=== PATIENT | female | born 1930 | race Caucasian/White ===

== ENCOUNTER 2018-08-27 05:30 | Emergency (ER) | payer MEDICARE, BC, MEDICAID ==
[~2018-08-27] VITALS: Ht 165.1 cm; Wt 68.2 kg
[~2018-08-27 05:30] MED LIST: ASPI81TA52 PO; INSU100V12 SQ; INSU100V5 IJ; LEVO75TA PO; OXYB5TAB11 PO; PRAV80TA3 PO; QUIN10TA PO
[2018-08-27 06:08] LABS: CLARITY,URINE CLEAR (Clear); COLOR,URINE STRAW (Yellow); GLUCOSE, URINE NEGATIVE (Neg); KETONES,URINE NEGATIVE (Neg); LEUKOCYTE ESTERASE ,URINE NEGATIVE (Neg); NITRITES, URINE NEGATIVE (Neg); OCCULT BLOOD,URINE NEGATIVE (Neg); PH,URINE 5.5 (4.8-8.0); PROTEIN,URINE NEGATIVE (Neg); UROBILINOGEN,URINE 0.2 E.U/dL (0.2-1.0)
[2018-08-27 06:09] LABS: UA COLLECTION TYPE CLN CATCH MIDSTREAM
[2018-08-27 06:14] LABS: BASOPHILS % (AUTO) 0.4 % (0-1); EOSINOPHILS # (AUTO) 0.4 X10'3 (0-0.9); EOSINOPHILS % (AUTO) 4.7 % (0-6); HEMATOCRIT 35.4 % (35.0-45.0); HEMOGLOBIN 11.7 g/dl (12.0-16.0); LYMPHOCYTES # (AUTO) 1.9 X10'3 (1.1-4.8); LYMPHOCYTES % (AUTO) 25.5 % (21-51); MEAN CORPUSCULAR HEMOGLOBIN 33.7 PG (27.0-31.0); MEAN CORPUSCULAR VOLUME 101.9 FL (78-98); MEAN PLATELET VOLUME 7.1 FL (7.4-10.4); MONOCYTES # (AUTO) 0.5 X10'3 (0-0.9); MONOCYTES % (AUTO) 6.8 % (2-12); NEUTROPHILS # (AUTO) 4.8 X10'3 (1.8-7.7); NEUTROPHILS % (AUTO) 62.6 % (42-75); PLATELET COUNT 156 X10'3 (140-440); RED BLOOD COUNT 3.47 X10'6 (4.20-5.60); RED CELL DISTRIBUTION WIDTH 13.2 % (11.5-14.5); WHITE BLOOD COUNT 7.6 X10'3 (4.5-11.0)
[2018-08-27 06:24] LABS: ALANINE AMINOTRANSFERASE 36 U/L (12-78); ALBUMIN 3.2 G/DL (3.4-5.0); ALBUMIN/GLOBULIN RATIO 0.9 (1.1-1.5); ALKALINE PHOSPHATASE 347 IU/L (46-116); ANION GAP 10 (8-16); ASPARTATE AMINO TRANSFERASE 40 U/L (10-37); BILIRUBIN,TOTAL 0.3 MG/DL (0.1-1.0); BLOOD UREA NITROGEN 19 MG/DL (7-18); CALCIUM 8.4 MG/DL (8.5-10.1); CHLORIDE 108 MMOL/L (99-107); CREATININE 0.76 MG/DL (0.40-0.90); GLUCOSE 134 MG/DL (70-104); POTASSIUM 3.4 MMOL/L (3.5-5.1); SODIUM 143 MMOL/L (135-145); TOTAL CARBON DIOXIDE 25.5 MMOL/L (24-32); TOTAL PROTEIN 6.8 G/DL (6.4-8.2); eGFR 72 ML/MIN
[2018-08-27 06:43] VITALS: BP 154/64
== END 2018-08-27 06:47 | disposition home or self-care (01) ==
LOC: ER 05:31
DX: E11.649 Type 2 diabetes mellitus with hypoglycemia without coma (principal); I25.10 Atherosclerotic heart disease of native coronary artery without angina pectoris; E78.00 Pure hypercholesterolemia, unspecified; I10 Essential (primary) hypertension; Z90.49 Acquired absence of other specified parts of digestive tract; Z98.890 Other specified postprocedural states; Z88.5 Allergy status to narcotic agent; Z79.82 Long term (current) use of aspirin; Z79.4 Long term (current) use of insulin; Z79.899 Other long term (current) drug therapy
CPT/HCPCS: 36415; 80053; 81003; 82948; 85025; 99283

== ENCOUNTER 2020-02-22 06:52 | Day surgery (SDC) | payer MEDICARE, BC, MEDICAID ==
[2020-02-21 13:11] LABS: BASOPHILS % (AUTO) 0.7 % (0-1); EOSINOPHILS # (AUTO) 0.2 X10'3 (0-0.9); EOSINOPHILS % (AUTO) 4.3 % (0-6); HEMATOCRIT 39.3 % (35.0-45.0); HEMOGLOBIN 13.1 g/dl (12.0-16.0); LYMPHOCYTES # (AUTO) 2.1 X10'3 (1.1-4.8); LYMPHOCYTES % (AUTO) 39.9 % (21-51); MEAN CORPUSCULAR HEMOGLOBIN 34.4 PG (27.0-31.0); MEAN CORPUSCULAR HGB CONC 33.4 g/dL (33.0-36.5); MEAN CORPUSCULAR VOLUME 102.9 FL (78-98); MEAN PLATELET VOLUME 7.2 FL (7.4-10.4); MONOCYTES # (AUTO) 0.4 X10'3 (0-0.9); MONOCYTES % (AUTO) 7.5 % (2-12); NEUTROPHILS # (AUTO) 2.5 X10'3 (1.8-7.7); NEUTROPHILS % (AUTO) 47.6 % (42-75); PLATELET COUNT 149 X10'3 (140-440); RED BLOOD COUNT 3.81 X10'6 (4.20-5.60); RED CELL DISTRIBUTION WIDTH 13.6 % (11.5-14.5); WHITE BLOOD COUNT 5.2 X10'3 (4.5-11.0)
[2020-02-21 13:19] LABS: ALBUMIN 3.6 G/DL (3.4-5.0); ANION GAP 6 (8-16); BLOOD UREA NITROGEN 20 MG/DL (7-18); BUN/CREATININE RATIO 20.4 (6.6-38.0); CHLORIDE 103 MMOL/L (99-107); CREATININE 0.98 MG/DL (0.40-0.90); GLUCOSE 291 MG/DL (70-104); POTASSIUM 4.8 MMOL/L (3.5-5.1); SODIUM 137 MMOL/L (135-145); TOTAL CARBON DIOXIDE 28.2 MMOL/L (24-32); eGFR 54 ML/MIN
[2020-02-21 13:22] LABS: PARTIAL THROMBOPLASTIN TIME 27 SECONDS (22-32)
[2020-02-22] VITALS (12 sets, daily range): BP systolic 127–160; BP diastolic 58–91
[~2020-02-22] VITALS: Ht 165.1 cm; Wt 69.8 kg
[~2020-02-22 06:52] MED LIST changes: -ASPI81TA52 PO; +INSU100V11 SQ; -INSU100V12 SQ; -INSU100V5 IJ; +INSU100V9 SQ; -LEVO75TA PO; +LEVO75TA7 PO; -OXYB5TAB11 PO; +POTA20TA10 PO; -PRAV80TA3 PO; -QUIN10TA PO; +URSO300C2 PO
[2020-02-22] MEDS ORDERED: diphenhydrAMINE 25mg capsule PO PRN (07:20)
[2020-02-22] MEDS ORDERED: LORazepam 0.5 MG tablet PO PRN (07:20)
[2020-02-22] MEDS ORDERED: normal saline 1,000 ML IV SCH (07:20)
[2020-02-22] MEDS ORDERED: METO50TA17 PO (07:47)
[2020-02-22] MEDS ORDERED: ASPI-611 PO (07:47)
[2020-02-22] MEDS ORDERED: HYDR-4353 PO (07:47)
[2020-02-22] MEDS ORDERED: ATOR40TA PO (07:47)
[2020-02-22] MEDS ORDERED: OXYB5TAB16 PO (07:47)
[2020-02-22] MEDS ORDERED: CALC-1215 PO (07:47)
[2020-02-22] MEDS ORDERED: FERGLU300T PO (07:47)
[2020-02-22] MEDS ORDERED: INSU100I8 SQ (07:47)
[2020-02-22] MEDS ORDERED: VITAMIN D3 PO (07:47)
[2020-02-22] MEDS ORDERED: VITA-268 PO (07:50)
[2020-02-22] MEDS ORDERED: LACT1CAP65 PO (07:50)
[2020-02-22] MEDS ORDERED: LIDOcaine 1% (10mg/ml)w/preservative injection 20ml MDV ONE (09:18)
[2020-02-22] MEDS ORDERED: nitroGLYCERIN-Tridil 50MG/D5W 250 ML IV ONE (09:18)
[2020-02-22] MEDS ORDERED: fentaNYL/PF 50MCG/1 ML 2ML syringe ONE (09:18)
[2020-02-22] MEDS ORDERED: iohexol 350 MG/ML 50ML vial IV ONE (09:18)
[2020-02-22] MEDS ORDERED: iohexol 350MG/ML 100ml bottle IV ONE ×2 (09:18→10:20)
[2020-02-22] MEDS ORDERED: midazolam 2 mg/2 ml injection ONE (09:18)
[2020-02-22] MEDS ORDERED: heparin 1,000unit/ml 10ml vial 10 ML ONE (10:04)
[2020-02-22] MEDS ORDERED: normal saline 1000ml 1,000 ML IV SCH (11:50)
[2020-02-22] MEDS ORDERED: lisinopril 10 MG tablet PO SCH (15:05)
[2020-02-22] MEDS ORDERED: carVEDilol 12.5mg tablet PO SCH (15:15)
== END 2020-02-22 17:05 | disposition home or self-care (01) ==
LOC: SSTAY O 06:52
PROVIDERS: ATTEND Internal Medicine Cardiovascular Disease
DX: R94.39 Abnormal result of other cardiovascular function study (principal); I25.10 Atherosclerotic heart disease of native coronary artery without angina pectoris; I25.82 Chronic total occlusion of coronary artery; E11.9 Type 2 diabetes mellitus without complications; I11.0 Hypertensive heart disease with heart failure; I50.9 Heart failure, unspecified; E78.5 Hyperlipidemia, unspecified; E03.9 Hypothyroidism, unspecified; G89.29 Other chronic pain; Z95.1 Presence of aortocoronary bypass graft; Z90.49 Acquired absence of other specified parts of digestive tract; Z98.890 Other specified postprocedural states; Z79.4 Long term (current) use of insulin; Z79.82 Long term (current) use of aspirin; Z79.899 Other long term (current) drug therapy; Z87.891 Personal history of nicotine dependence
CPT/HCPCS: 36415; 76937; 80048; 82948; 85025; 85610; 85730; 93005; 93459; 93567; 99152; 99153; C1760; C1769; J1644; J2001; J2250; J3010; Q9967; A4620; A6258; J3490

== ENCOUNTER 2021-09-18 12:48 | Emergency (ER) | payer MEDICARE, MEDICAID ==
[~2021-09-18] VITALS: Ht 165.1 cm; Wt 68.0 kg
[~2021-09-18 12:48] MED LIST changes: +ASPI-611 PO; +ATOR40TA PO; +CALC-1215 PO; +FERR324T23 PO; +HYDR-4353 PO; +INSU100I8 SQ; -INSU100V11 SQ; +LACT1CAP65 PO; +METO50TA17 PO; +OXYB5TAB16 PO; -POTA20TA10 PO; +VITA-268 PO; +VITAMIN D3 PO
[2021-09-18 16:12] LABS: BASOPHILS # (AUTO) 0.1 X10'3 (0-0.2); BASOPHILS % (AUTO) 0.8 % (0-1); EOSINOPHILS # (AUTO) 0.2 X10'3 (0-0.9); HEMATOCRIT 37.9 % (35.0-45.0); HEMOGLOBIN 12.6 g/dl (12.0-16.0); LYMPHOCYTES # (AUTO) 2.7 X10'3 (1.1-4.8); LYMPHOCYTES % (AUTO) 41.8 % (21-51); MEAN CORPUSCULAR HGB CONC 33.3 g/dL (33.0-36.5); MEAN PLATELET VOLUME 6.5 FL (7.4-10.4); MONOCYTES # (AUTO) 0.6 X10'3 (0-0.9); MONOCYTES % (AUTO) 8.6 % (2-12); NEUTROPHILS % (AUTO) 45.8 % (42-75); PLATELET COUNT 241 X10'3 (140-440); RED BLOOD COUNT 3.83 X10'6 (4.20-5.60); RED CELL DISTRIBUTION WIDTH 14.4 % (11.5-14.5); WHITE BLOOD COUNT 6.5 X10'3 (4.5-11.0)
[2021-09-18] MEDS ORDERED: normal saline 1000ML IV soln IVB ONE (16:15)
[2021-09-18 16:28] LABS: ALANINE AMINOTRANSFERASE 21 U/L (12-78); ALBUMIN 3.2 G/DL (3.4-5.0); ALBUMIN/GLOBULIN RATIO 0.7 (1.1-1.5); ALKALINE PHOSPHATASE 154 IU/L (46-116); ANION GAP 6 (8-16); ASPARTATE AMINO TRANSFERASE 29 U/L (10-37); BILIRUBIN,TOTAL 0.5 MG/DL (0.1-1.0); BLOOD UREA NITROGEN 13 MG/DL (7-18); BUN/CREATININE RATIO 15.1 (6.6-38.0); CHLORIDE 104 MMOL/L (99-107); CREATININE 0.86 MG/DL (0.40-0.90); GLUCOSE 152 MG/DL (70-104); LIPASE < 50 U/L (73-393); MAGNESIUM 1.9 MG/DL (1.5-2.4); POTASSIUM 4.1 MMOL/L (3.5-5.1); SODIUM 138 MMOL/L (135-145); TOTAL CARBON DIOXIDE 27.6 MMOL/L (24-32); TOTAL PROTEIN 7.8 G/DL (6.4-8.2); eGFR 62 ML/MIN
[2021-09-18] MEDS ORDERED: acetaminophen 325mg tablet PO ONE (16:55)
[2021-09-18 18:16] VITALS: BP 147/66
== END 2021-09-18 18:18 | disposition home or self-care (01) ==
LOC: ER 12:48
DX: R19.7 Diarrhea, unspecified (principal); I25.10 Atherosclerotic heart disease of native coronary artery without angina pectoris; E78.00 Pure hypercholesterolemia, unspecified; I10 Essential (primary) hypertension; E11.9 Type 2 diabetes mellitus without complications; Z87.440 Personal history of urinary (tract) infections; Z90.89 Acquired absence of other organs; Z90.49 Acquired absence of other specified parts of digestive tract; Z98.890 Other specified postprocedural states; Z88.2 Allergy status to sulfonamides; Z88.5 Allergy status to narcotic agent; Z79.82 Long term (current) use of aspirin; Z79.4 Long term (current) use of insulin; Z79.899 Other long term (current) drug therapy
CPT/HCPCS: 36415; 80053; 83690; 83735; 85025; 96360; 99284; J7030